=== PATIENT | female | born 1945 | race Caucasian/White ===

== ENCOUNTER → 2017-12-14 23:47 | Outpatient (CLI) | payer MEDICARE, OTHER ==
[2014-03-16 19:59] VITALS: BMI 27.5
[~2017-12-14 23:47] MED LIST: ACETAMINOPHEN500 M1; ANTIVERT25 MG PO; ASCORBIC ACID500 MG PO; ASPIRIN325 MG PO; CALCIUM 600+D T1 TA1 PO; CELEXA20 MG PO; DOXYCYCLINE HY100 M2 PO; FOSAMAX 70 MG T70 MG PO; K-DUR20 MEQ PO; LASIX40 MG PO; LOPRESSOR50 MG PO; PEPCID AC20 MG PO; PLAVIX75 MG PO; ZOCOR40 MG PO
== END | disposition home or self-care (01) ==
LOC: D.MAMMO 10:30
DX: Z12.31 Encounter for screening mammogram for malignant neoplasm of breast (principal)

== ENCOUNTER 2018-01-05 08:00 | Outpatient (CLI) | payer MEDICARE, OTHER ==
[2014-03-16 19:59] VITALS: BMI 27.5
== END 2018-01-05 09:00 | disposition home or self-care (01) ==
LOC: D.MAMMO 08:00
DX: R92.8 Other abnormal and inconclusive findings on diagnostic imaging of breast (principal)

== ENCOUNTER → 2018-12-29 08:31 | Outpatient (CLI) | payer MEDICARE, OTHER ==
[2014-03-16 19:59] VITALS: BMI 27.5
== END | disposition home or self-care (01) ==
LOC: D.RT 08:31
PROVIDERS: ATTEND Internal Medicine Pulmonary Disease
DX: J45.909 Unspecified asthma, uncomplicated (principal)

== ENCOUNTER → 2019-06-01 09:13 | Outpatient (CLI) | payer MEDICARE, OTHER ==
[2014-03-16 19:59] VITALS: BMI 27.5
== END | disposition home or self-care (01) ==
LOC: D.RT 09:13
PROVIDERS: ATTEND Internal Medicine Pulmonary Disease
DX: J45.909 Unspecified asthma, uncomplicated (principal)